=== PATIENT | female | born 1970 | race African-American/Black ===

== ENCOUNTER 2016-07-11 12:59 | Inpatient (IN) | payer OTHER ==
--- NOTE | ~2016-07-11 | DS ---
Unit #: [id number] #: [id number] Patient: NATE CAMPO [id number] [address] [address] [id number] I MR#: [id number] NAME: NATE CAMPO ROOM: 324 Age: 45 Sex: F Admission Date: 07/11/2016 : 1970 Discharge Date: 07/12/2016 Attending Physician: Cassie Mcdowell M.D. Primary Care Physician: Cassie Mcdowell M.D. DISCHARGE SUMMARY FINAL DIAGNOSES 1. Acute on chronic kidney disease. Renal functions have improved. The patient was seen by and the patient will be seen by straightening machine operator as an outpatient. 2. Hypertension, which is resolved. The patient's ROMÁN inhibitors and diuretics have been discontinued at this time. Hydration was started. The patient's blood pressure has improved, but has been told not to take the medication at this time until she follows up with us in a week. 3. Dizziness, resolved. 4. Hyponatremia, resolved. Most likely, it was secondary to elevated sugars. 5. Anemia. The patient does have uterine fibroid bleeding and she needs to follow up with [employer] for possible removal. 6. Proteinuria. The patient does have proteinuria and she should be on ROMÁN inhibitors, but at this time, we have stopped it. 7. Diabetes mellitus. The patient is very noncompliant with her diet. Has been advised to be careful with the diet and check her sugars 2 to 3 times a day. DISCHARGE MEDICATIONS Albuterol inhaler q.4 p.r.n.; Symbicort 160/4.5 two puffs inhaler b.i.d.; Pristiq 50 mg daily; metformin, continue; Seroquel 100 mg at bedtime. Discontinue hydrochlorothiazide, discontinue lisinopril. DIAGNOSTIC STUDIES LABORATORY RESULTS: On discharge, hemoglobin A1c 7.9. Ferritin 29. Sodium 133, potassium 4.8, BUN 29, creatinine 1.8. Total iron is 27. WBC 8.4, hemoglobin 9.0, hematocrit 28.3, and platelet count of 250. PHYSICAL EXAMINATION Please refer to the note today in the progress note. DISCHARGE INSTRUCTIONS 1. Follow up primary care provider, Dr. Mcdowell in 1 week. 2. BMP in 7 days and CBC in 7 days. Dictated by... Margarette Espinosa/jimmie Unit #: [id number] #: [id number] Patient: NATE CAMPO TD: 07/13/2016 02:38 JOB #: [id number] DISCHARGE SUMMARY Page 1 of 1 X Cassie Mcdowell MD X DISCHARGE SUMMARY
--- NOTE | ~2016-07-11 | EKG ---
PATIENT: NATE CAMPO UNIT #: [id number] Ventricular Rate: 110 BPM Atrial Rate: 110 BPM P-R Interval: 162 ms QRS Duration: 90 ms Q-T Interval: 346 ms QTC Calculation(Bezet): 468 ms P [place]: 70 degrees Calculated R [place]: 63 degrees Calculated T [place]: 24 degrees Diagnosis Line: Sinus tachycardia Diagnosis Line: Otherwise normal ECG Diagnosis Line: When compared with ECG of 19-NOV-2012 08:20, Diagnosis Line: Vent. rate has increased BY 40 BPM Diagnosis Line: Confirmed by JA OBRIEN MD ([id number]) on 07/12/2016 Diagnosis Line: 9:15:25 PM INTERPRETING MD: CAMILLE MCNEAL
--- NOTE | ~2016-07-11 | BMI ---
[facility] Nutrition Therapy DATE: 07/12/16 Patient: NATE CAMPO Physician: ALE Address: [address] [facility] Room/Bed: [address] [place] [address], Zip: [place] [address] Admit Date: 07/11/16 Date of : [birth year] Height: 5 7 Weight: 428 194.2 HIGH BMI NOTE: DX: 45 Y.O. FEMALE ADMITTED FOR [facility]: 5'7", WT: 428# (195 KG), BMI: 67.0 DIET: CC+ RENAL INTERVENTION: 1. CC+ RENAL DIET RECOMMENDATIONS: 1. RECOMMEND TO CONTINUE CURRENT DIET ORDER ABOVE TO PROMOTE GRADUAL WEIGHT LOSS TOWARDS HEALTHY BMI (19.0-25.0) OR +/-10%IBW RD WILL F/U PER PROTOCOL Respectfully, HAMIDA JOYNER MS, RD, LD Food and Nutritional Services [facility] cc: client file
--- NOTE | ~2016-07-11 | CO ---
Unit #: [id number] #: [id number] Patient: NATE CAMPO [id number] [address] [place], [place] [address] [id number] I MR#: [id number] NAME: NATE CAMPO ROOM: 324 Age: 45 Sex: F Admission Date: 07/11/2016 : 1970 Attending Physician: Cassie Mcdowell M.D. Primary Care Physician: Cassie Mcdowell M.D. Consultation Date: 07/11/2016 CONSULTATION REPORT REASON FOR CONSULT Uszup-ip-xybiaxa kidney disease. HISTORY OF PRESENT ILLNESS Ms. Campo is a very pleasant, 45-year-old -[place] female with a history of poorly controlled diabetes, who was here at the hospital in the cafeteria eating lunch prior to seeing a occupational medicine physician for clearance for uterine fibroid surgery when she developed dizziness and syncope. A ME Team was called here at the hospital and I defer you to Dr. Mcdowell's admission note for further details. Her blood pressure was very low in the emergency room necessitating fluid resuscitation and patient has recovered her blood pressure and her normal mentation at this time. Kidney function was found to be abnormal on admission labs promoting our consultation. The patient tells me that Dr. Mcdowell recently told her that her kidney function was abnormal in the office and that she needed to start taking better care of her diabetes. She does take her medication but says that she is not compliant with her diet. She does not use any NSAIDs at home. No history of kidney stones. No urinary complaints. PAST MEDICAL HISTORY Past medical history is significant for hypertension, diabetes, asthma, morbid obesity, anemia and arthritis. PAST SURGICAL HISTORY Corneal transplant and cataract surgery and Dr. Mcdowell's notes say that she has had a Lap-Band in the past. HOME MEDICATIONS Her home meds are: 1. Metformin 1000 mg q.h.s. 2. Pristiq 50 mg daily. 3. Seroquel 100 mg q.h.s. 4. Lisinopril 10 mg daily. 5. Hydrochlorothiazide 25 mg daily. 6. Symbicort inhaler and albuterol inhaler. ALLERGIES She has no known drug allergies. FAMILY HISTORY Family history is significant for hypertension and diabetes. There are no blood relatives on dialysis however. Unit #: [id number] #: [id number] Patient: NATE CAMPO SOCIAL HISTORY Patient does not smoke. No alcohol or drug abuse. REVIEW OF SYSTEMS A complete 12-point review of systems was completed with the above findings. In addition she denies any headaches. Her dizziness again has resolved. No nosebleed, sore throat or earache. No chest pain at this time. No palpitations. No cough or hemoptysis. No recent nausea, vomiting or diarrhea. No bright red blood per rectum or melena. No dysuria or hematuria. No swelling. No rashes. No itching. No flank pain. No fevers. No chills. No night sweats or hot flashes. No intolerance to heat or cold. No recent weight changes. Unless otherwise indicated, the review of systems was negative. PHYSICAL EXAMINATION VITAL SIGNS: The patient is afebrile, pulse 80, respiratory rate 20, blood pressure 131/61, most recently blood pressure dropped to 70/50. Is and Os are pending. GENERAL: In general this is a 45-year-old -[place] female lying in bed, just ate dinner, alert and oriented x3 and in no acute distress. HEENT EXAM: Head is atraumatic and normocephalic. Eyes show pale conjunctivae with no scleral icterus. No nasal drainage or nosebleed. Oropharynx is moist. She does have a narrow posterior pharyngeal airway. NECK: Neck is thick with no JVD. HEART: Heart is a regular rate and rhythm with distant S1 and S2. No murmurs or rubs appreciated. LUNGS: Lungs have diminished breath sounds bilaterally with no wheezing. Breathing is nonlabored. ABDOMEN: Abdomen is morbidly obese, soft, nontender. There are bowel sounds present. EXTREMITIES: There is no lower extremity cyanosis or pitting edema. SKIN: Skin is dry without rashes. MUSCULOSKELETAL EXAM: No CVA tenderness to palpation. NEUROLOGICAL EXAM: Cranial nerves appear grossly intact. No gross motor deficits. LYMPHATIC EXAM: There is no neck cervical lymphadenopathy. PSYCHIATRIC EXAM: Mood and affect appear normal. DIAGNOSTIC STUDIES LABORATORY: Chemistry on admission showed a sodium of 134, potassium 3.9, chloride 100, bicarb 21, glucose 313, BUN 29, creatinine 2.7. CBC noteworthy for a hemoglobin of 10.2, troponin negative. Labs from Dr. Mcdowell's office are unavailable. Her creatinine back in 2012 was 0.7. Hemoglobin A1C this admission is pending. Previous urinalysis back in 2011 did show proteinuria. ASSESSMENT AND PLAN 1. Vgznh-se-dozmfql kidney disease, unknown stage. Again patient has been told recently that her kidney function has deteriorated due to her diabetes but I do not have those labs available. Therefore we are not able to place her chronic kidney disease in a give stage. Her acute kidney injury looks to be prerenal in nature from significant hypotension while on an ROMÁN inhibitor and diuretic. These are being held and she is getting hydration with improved blood pressures. I will be sending off urine studies for evaluation. I do not think a kidney ultrasound would be very helpful due to her size as we would not get good imaging with an ultrasound. 2. Hypotension with dizziness. Blood pressure has come up with fluids Unit #: [id number] #: [id number] Patient: NATE CAMPO which we will continue. 3. Hyponatremia. This corrects higher for elevated sugars and will continue saline. 4. Anemia. This is apparently due to some uterine fibroid bleeding and I will check iron stores and replace as needed. 5. Proteinuria. Certainly would like her to be on an ROMÁN inhibitor going forward and may have to switch out her hydrochlorothiazide to a calcium channel power to avoid this prerenal state. 6. Noncompliance with diabetic diet. I would like to thank Dr. Mcdowell for this consult and the opportunity to participate in evaluation and care of Ms. Campo. Dictated by... Christian Franco Jr., MLeo. YVONNE/ochoa TD: 07/11/2016 21:59 JOB #: [id number] CONSULTATION REPORT Page 1 of 1 X Christian Franco MD X CONSULTATION REPORT
--- NOTE | ~2016-07-11 | HP ---
Unit #: [id number] #: [id number] Patient: OLIVIA CAMPO [id number] [facility]. [place], [place] [address] [id number] I MR#: [id number] NAME: OLIVIA CAMPO ROOM: 324 Age: 45 Sex: F Admission Date: 07/11/2016 : 1970 Attending Physician: Cassie Mcdowell M.D. Primary Care Physician: Cassie Mcdowell M.D. HISTORY AND PHYSICAL CHIEF COMPLAINT Dizziness and hypotension. HISTORY OF PRESENTING ILLNESS Ms. Olivia Campo is a 45-year-old morbidly obese female with multiple medical problems including hypertension, asthma, diabetes mellitus type 2, came to hospital to follow up with behavioral consultant Dr. Khoury. Patient's appointment was at noon. She reached the hospital at 11:00 so went to cafeteria to have some food. She was eating food. Right after eating, within five minutes she started feeling very dizzy. She did not have any passing out episode. A ME Team was called. The patient's blood pressure was low and was transferred to emergency room. In emergency room patient was found to be dehydrated, in acute renal failure and also hypotensive. Patient received IV bolus. She is awake, up and sitting in the chair. Patient has been evaluated in room 324. Patient is not complaining of any dizziness anymore. According to patient this happened to her a few days ago. She did not eat anything until late afternoon and then after eating she had dizzy spell. According to her she has been eating and drinking well. Her diet is not very well controlled. She has been drinking a lot of soft drinks and fried food. Even today her diet was martinez Coke, chocolate milk, fried fish sandwich. Patient's diabetes is not very well controlled. According to her she is addicted to sugar and she is having a tough time discontinuing high carb and high sugar diet. Patient has history of anemia and has fibroids. She has been scheduled for surgery but she needs cardiac clearance and pulmonary clearance. Patient has asthma which is not very well controlled. Patient follows up with Dr. Wells and has not gotten pulmonary clearance as yet. Patient does not complaint of any chest pain at this time or at that time. She did have shortness of breath. No complaint of nausea or vomiting. She has not had any fever, chills or rigors in the last few days. PAST MEDICAL HISTORY 1. Hypertension. 2. Diabetes mellitus type 2. 3. Asthma. 4. Morbid obesity. 5. Anemia. 6. Arthritis. FAMILY HISTORY The patient's mother has diabetes and hypertension and also CVA history in mother, maternal grandmother and paternal grandfather. Unit #: [id number] #: [id number] Patient: OLIVIA CAMPO SOCIAL HISTORY Patient has no history of smoking, alcohol or drug abuse. PAST SURGICAL HISTORY Patient has had lap band surgery in the past. REVIEW OF SYMPTOMS As per history of presenting illness. Patient was seen by primary care provider in April 2016. She was told at that time she does have some kidney issue and she needs to control her sugars. Patient also had cerumen impaction in April visit and flushing was done. She does not complain of any headache at this time. No complaint of any visual issues. No ear, nose, throat problem. PHYSICAL EXAMINATION GENERAL APPEARANCE: Morbidly obese female sitting in chair, does not seem to be in any respiratory distress at this time. VITAL SIGNS: Blood pressure at this time is 105/46, respiratory rate 16, pulse is 98, temperature 97.7, oxygen saturation is 99%. Blood pressure was 70/50 earlier and pulse was 115. HEENT: Head is normocephalic. Eye movement was normal. Some conjunctival congestion is present. NECK: Neck is supple. CHEST: Chest has decreased air entry bilaterally. Bilateral wheezing is present. CVS: S1, S2 positive, regular rhythm. ABDOMEN: Morbidly obese, obese abdomen. EXTREMITIES: Edema is present. SKIN: Very dry scaly skin. CUSTOMER SERVICES MANAGER: Awake, alert and oriented x3. No focal neurological deficit. DIAGNOSTIC STUDIES LABORATORY WORKUP: WBC 9.9, hemoglobin 10.2, hematocrit 31.3 and platelet count of 358, sodium 134, potassium 3.9, chloride 100, BUN 29, creatinine 2.7, glucose 161. ASSESSMENT Patient is being admitted to a telemetry unit with: 1. Hypotension. 2. Dizziness. 3. Acute renal failure. 4. Possible clinical dehydration. 5. Diabetes mellitus type 2 uncontrolled. 6. History of hypertension. 7. History of asthma. 8. Morbid obesity. PLAN Plan is admit to telemetry unit. IV fluids normal saline at 150 mL an hour is being started. Constant carb diet is being started. Dr. Saravia will be consulted. Labs will be repeated tomorrow morning. Accu-Chek a.c. and h.s. is being started with insulin sliding scale. Metformin is being discontinued. Lisinopril is being discontinued and hydrochlorothiazide is being discontinued at this time. Again diet counseling done. Patient verbalized understanding. Plan of care has been discussed with patient. Please refer to progress note for further orders. Unit #: [id number] #: [id number] Patient: OLIVIA CAMPO Dictated by Margarette Espinosa/ocoha TD: 07/11/2016 15:24 JOB #: [id number] HISTORY AND PHYSICAL Page 1 of 1 X Cassie Mcdowell MD X HISTORY AND PHYSICAL
[2016-07-11 12:33] LABS: POC - CKMB <1.0 ng/mL (0.0-7.9); POC - TROPONIN <0.05 ng/mL (<=0.05)
[2016-07-11 12:42] LABS: BASOPHIL% 0.4 % (0-2.5); EOSINOPHIL# 0.1 X10e3 (0-0.7); EOSINOPHIL% 1.3 % (0.0-7.0); HEMATOCRIT 31.3 % (35.0-45.0); HEMOGLOBIN 10.2 gm/dL (12.0-16.0); LYMPHOCYTE# 1.5 X10e3 (1.0-3.5); LYMPHOCYTE% 15.1 % (17.0-45.0); MEAN CELL VOLUME 89.3 FL (83-96); MEAN CORPUSCULAR HEMOGLOBIN 28.9 PG (28-34); MEAN CORPUSCULAR HGB CONC 32.4 g/dL (30-36); MEAN PLATELET VOLUME 8.5 FL (6.5-11.5); MONOCYTE# 0.4 X10e3 (0-1.0); MONOCYTE% 3.5 % (3.0-12.0); NEUTROPHIL# 7.9 X10e3 (1.5-7.1); NEUTROPHIL% 79.7 % (40-75); PLATELET COUNT 358 X10e3 (140-420); RED BLOOD COUNT 3.51 X10e (3.90-5.30); RED CELL DISTRIBUTION WIDTH 13.7 % (11.0-15.5); WHITE BLOOD COUNT 9.9 X10e3 (4.0-10.5)
[2016-07-11 12:44] LABS: DIFF IND NO
[~2016-07-11 12:59] MED LIST: ALBUTEROL17 GM INH; CYMBALTA PO; DOXYCYCLINE HY100 M1 PO; GRALISE600 MG PO; HCTZ PO; LASIX20 MG PO; METFORMIN PO; NEURONTIN PO; PREDNISONE PO; PREDNISONE50 MG PO; VOLTAREN75 MG PO; WELLBUTRIN XL PO; ZANTAC150 M1 PO; ZITHROMAX PO
[2016-07-11 13:01] LABS: BUN/CREATININE RATIO 10.74; CALCIUM SERUM 8.9 mg/dL (8.4-10.2); CREATININE SERUM 2.7 mg/dL (0.6-1.4); GLOM FILT RATE Estimated 23.9 mL/min (>60); POTASSIUM 3.9 mmol/L (3.5-5.1)
[2016-07-11] MEDS ORDERED: PRISTIQ50 MG PO (13:57)
[2016-07-11] MEDS ORDERED: METFORMIN HCL1000 M2 PO (13:57)
[2016-07-11] MEDS ORDERED: HYDROCHLOROTHIA25 MG PO (13:58)
[2016-07-11] MEDS ORDERED: LISINOPRIL10 MG PO (13:58)
[2016-07-11] MEDS ORDERED: SEROQUEL PO (13:58)
[2016-07-11] MEDS ORDERED: SYMBICORT INH (13:59)
[2016-07-11] MEDS ORDERED: ALBUTEROL20 ml INH (14:00)
[2016-07-12 06:29] LABS: HEMATOCRIT 28.3 % (35.0-45.0); MEAN CORPUSCULAR HEMOGLOBIN 28.4 PG (28-34); MEAN CORPUSCULAR HGB CONC 31.9 g/dL (30-36); MEAN PLATELET VOLUME 8.9 FL (6.5-11.5); RED BLOOD COUNT 3.18 X10e (3.90-5.30); RED CELL DISTRIBUTION WIDTH 13.7 % (11.0-15.5); WHITE BLOOD COUNT 8.4 X10e3 (4.0-10.5)
[2016-07-12 07:07] LABS: IRON SERUM 27 ug/dL (28-170); TOTAL IRON BINDING CAPACITY 237 ug/dL (269-535); TRANSFERRIN 170 mg/dL (192-382); TRANSFERRIN SATURATION 11 % (20-50)
[2016-07-12 07:22] LABS: BUN/CREATININE RATIO 16.11; CALCIUM SERUM 8.4 mg/dL (8.4-10.2); CREATININE SERUM 1.8 mg/dL (0.6-1.4); POTASSIUM 4.8 mmol/L (3.5-5.1)
[2016-07-12 16:24] LABS: URINE SOURCE CLEAN CATCH
[2016-07-12 16:32] LABS: URINE APPEARANCE CLEAR; URINE BILIRUBIN NEG (NEG); URINE BLOOD NEG (NEG); URINE COLOR YELLOW; URINE GLUCOSE 250 MG/DL (NEG); URINE KETONE NEG (NEG); URINE LEUKOCYTE ESTERASE TRACE (NEG); URINE NITRATE NEG (NEG); URINE PROTEIN NEG (NEG); URINE SPECIFIC GRAVITY 1.013 (1.003-1.035); URINE UROBILINOGEN 0.2 MG/DL (NEG)
[2016-07-12 16:34] LABS: URBCS1 AUWI 0-2 /[HPF] (0-2); URINE BACTERIA AUWI NEG (NEGATIVE); URINE SQUAMOUS EPITHELIAL CELL NONE SEEN /[HPF]; UWBCS1 AUWI 0-2 (0-5)
[2016-07-12 16:43] LABS: CREATININE,RANDOM URINE 87 mg/dL; TOTAL PROTEIN,RANDOM URINE 18 mg/dl (<10)
[2016-08-31] MEDS ORDERED: ZIPRASIDONE HCL40 MG PO (14:55)
[2016-08-31] MEDS ORDERED: FERROUS SULFATE PO (14:56)
[2016-08-31] MEDS ORDERED: FOLIC ACID1 MG PO (14:56)
[2016-08-31] MEDS ORDERED: BREO ELLIPTA 11 EACH INH (14:57)
[2016-08-31] MEDS ORDERED: PRINIVIL10 MG PO (14:57)
[2016-08-31] MEDS ORDERED: PRISTIQ100 MG PO (14:57)
[2016-08-31] MEDS ORDERED: INCRUSE ELLI62.5 MCG INH (14:58)
[2016-09-27] MEDS ORDERED: KEFLEX500 MG PO (07:37)
[2016-11-03] MEDS ORDERED: PRINIVIL20 M1 PO (16:47)
[2016-11-03] MEDS ORDERED: GEODON60 MG (16:49)
[2016-11-03] MEDS ORDERED: BACTRIM DS TAB1 EACH (16:50)
== END 2016-07-12 17:30 | disposition home or self-care (01) | DRG 683 ==
LOC: CED 12:59 → CEDOF 13:25 → C3A PCU 14:47
PROVIDERS: Emergency Medicine; Physician Assistant Medical
PROC: 3E0234Z Introduction of Serum, Toxoid and Vaccine into Muscle, Percutaneous Approach (ICD-10-PCS; principal; 2016-07-12)
DX: N17.9 Acute kidney failure, unspecified (principal); E87.1 Hypo-osmolality and hyponatremia; E11.22 Type 2 diabetes mellitus with diabetic chronic kidney disease; I95.9 Hypotension, unspecified; E11.65 Type 2 diabetes mellitus with hyperglycemia; Z68.45 Body mass index [BMI] 70 or greater, adult; I12.9 Hypertensive chronic kidney disease with stage 1 through stage 4 chronic kidney disease, or unspecified chronic kidney disease; N18.2 Chronic kidney disease, stage 2 (mild); R42 Dizziness and giddiness; D64.9 Anemia, unspecified; R77.9 Abnormality of plasma protein, unspecified; E66.01 Morbid (severe) obesity due to excess calories; E86.0 Dehydration; Z98.84 Bariatric surgery status; J45.909 Unspecified asthma, uncomplicated; Z98.49 Cataract extraction status, unspecified eye; Z79.84 Long term (current) use of oral hypoglycemic drugs; Z83.3 Family history of diabetes mellitus; Z82.49 Family history of ischemic heart disease and other diseases of the circulatory system; D25.9 Leiomyoma of uterus, unspecified; Z23 Encounter for immunization
CPT/HCPCS: 36415; 80048; 81003; 82553; 82570; 82728; 82947; 83036; 83540; 83550; 84156; 84484; 85025; 85027; 90688; 90732; 93005; 94640; 94760; 96360; 99285; G0008; G0009; J1815; J2916

== ENCOUNTER → 2016-09-27 | Day surgery (SDC) | payer OTHER ==
[~2016-09-27] MED LIST changes: +ALBUTEROL20 ml INH; +BACTRIM DS TAB1 EACH; +BREO ELLIPTA 11 EACH INH; +FERROUS SULFATE PO; +FOLIC ACID1 MG PO; +GEODON60 MG; +HYDROCHLOROTHIA25 MG PO; +INCRUSE ELLI62.5 MCG INH; +KEFLEX500 MG PO; +LISINOPRIL10 MG PO; +METFORMIN HCL1000 M2 PO; +PRINIVIL10 MG PO; +PRINIVIL20 M1 PO; +PRISTIQ100 MG PO; +PRISTIQ50 MG PO; +SEROQUEL PO; +SYMBICORT INH; +ZIPRASIDONE HCL40 MG PO
--- NOTE | ~2016-09-27 | EKG ---
PATIENT: NATE CAMPO UNIT #: [id number] Ventricular Rate: 87 BPM Atrial Rate: 87 BPM P-R Interval: 174 ms QRS Duration: 82 ms Q-T Interval: 372 ms QTC Calculation(Bezet): 447 ms P [place]: 67 degrees Calculated R [place]: 47 degrees Calculated T [place]: 53 degrees Diagnosis Line: Normal sinus rhythm Diagnosis Line: Normal ECG Diagnosis Line: When compared with ECG of 11-JUL-2016 12:37, Diagnosis Line: No significant change was found Diagnosis Line: Confirmed by SUE GIL MD ([id number]) on 09/27/2016 Diagnosis Line: 7:48:20 AM INTERPRETING MD: JEFFERY MCNEAL
--- NOTE | ~2016-09-27 | OR ---
Unit #: [id number] #: [id number] Patient: NATE CAMPO [id number] [address] [place], [place] [address] [id number] O MR#: [id number] NAME: NATE CAMPO ROOM: Date of Procedure: 09/27/2016 Admission Date: 09/27/2016 Surgeon: Andre Nichols M.D. : 1970 Attending Physician: Andre Nichols M.D. Primary Care Physician: Cassie Mcdowell M.D. OPERATIVE REPORT PREOPERATIVE DIAGNOSIS Pilonidal abscess. POSTOPERATIVE DIAGNOSIS Pilonidal abscess. PROCEDURE PERFORMED Incision and drainage of pilonidal abscess. ANESTHESIA General anesthesia. ESTIMATED BLOOD LOSS Minimal. IV FLUIDS 400 crystalloid. COMPLICATIONS None. INDICATIONS FOR PROCEDURE The patient is a 46-year-old, morbidly obese lady, who presents with drainage in her pilonidal region. She presents for exploration. DESCRIPTION OF PROCEDURE The patient was taken to the operating theater and placed in a supine position. General anesthesia was induced. She was then placed in prone position and her pilonidal region was prepped and draped. I incised an area measuring approximately 5 cm to develop a pocket in the pilonidal space. There was gross purulence. Also, I made a counterincision on the other side of the midline. This was debrided off all necrotic tissue, irrigated thoroughly with normal saline, and packed with Betadine. The patient tolerated the procedure well and sent to the recovery room in good condition. Dictated by... Margarette Mustafa/wildl Unit #: [id number] #: [id number] Patient: NATE CAMPO TD: 09/27/2016 23:27 JOB #: [id number] OPERATIVE REPORT Page 1 of 1 X Andre Nichols MD X PROCEDURE OPERATIVE NOTE
[2016-09-27 07:59] LABS: BUN/CREATININE RATIO 12.3; CALCIUM SERUM 8.7 mg/dL (8.4-10.2); CREATININE SERUM 1.3 mg/dL (0.6-1.4); GLOM FILT RATE Estimated 57.4 mL/min (>60); POTASSIUM 4.4 mmol/L (3.5-5.1)
== END | disposition home or self-care (01) ==
LOC: CSUR 06:49
PROVIDERS: Surgery
DX: L05.01 Pilonidal cyst with abscess (principal); E66.01 Morbid (severe) obesity due to excess calories; J44.9 Chronic obstructive pulmonary disease, unspecified; I10 Essential (primary) hypertension; E11.9 Type 2 diabetes mellitus without complications; J45.909 Unspecified asthma, uncomplicated; K21.9 Gastro-esophageal reflux disease without esophagitis; M19.90 Unspecified osteoarthritis, unspecified site; D64.9 Anemia, unspecified; G47.30 Sleep apnea, unspecified; F32.9 Major depressive disorder, single episode, unspecified; F41.9 Anxiety disorder, unspecified; Z68.44 Body mass index [BMI] 60.0-69.9, adult; Z87.01 Personal history of pneumonia (recurrent); Z79.84 Long term (current) use of oral hypoglycemic drugs; Z79.51 Long term (current) use of inhaled steroids; Z79.2 Long term (current) use of antibiotics; Z79.899 Other long term (current) drug therapy; Z98.818 Other dental procedure status; Z98.41 Cataract extraction status, right eye; Z98.42 Cataract extraction status, left eye; Z98.84 Bariatric surgery status; Z98.890 Other specified postprocedural states
CPT/HCPCS: 80048; 82947; 84703; 93005; J0330; J2250; J2543; J3010

== ENCOUNTER → 2016-11-13 | Outpatient (CLI) | payer OTHER ==
--- NOTE | ~2016-11-13 | MY29 ---
[facility] A Service of [facility] RADIOLOGY TEXT RESULTS PATIENT: NATE CAMPO LOCATION: [facility] : [birth year] UNIT #: [id number] AGE: [address]: Cassie Mcdowell MD SEX: F ORDER DR: [id number] [facility] [address] [place], [place] [address] [id number] MR#: [id number] Acc #: [id number] NAME: NATE CAMPO : 1970 SEX: F STUDY DATE/TIME: 11/13/2016 11:52 UNIT: [facility] ROOM: STUDY DESCRIPTION: MY TRICE SCREENING W/ CAD BILAT Attending Physician: Cassie Mcdowell M.D. Referring Physician: Cassie Mcdowell M.D. Ordering Physician: Cassie Mcdowell M.D. Primary Care Physician: Cassie Mcdowell M.D. MEDICAL IMAGING REPORT This report is preliminary unless electronic signature is present EXAM Screening mammogram, 11/13 INDICATIONS 46-year-old with no personal or family history of breast cancer. No current complaints. FINDINGS Routine digital screening views of both breasts were obtained. Study is reviewed with an FDA-approved CAD device. Comparison made with 11/05/2015, 03/16/2014. Breast parenchyma shows scattered fibroglandular densities. No new masses or suspicious microcalcifications are seen. Benign lymph node in the lateral right breast is stable. IMPRESSION Benign mammogram. Routine screen in 1 year is recommended. Patients over the age of 40 are entered into a reminder system with target due date for the next mammogram. A result letter will also be sent to the patient. BIRADS: 2 Benign Finding Dictated by... Hugh Tejeda Jr., M.D. THIS IS AN ELECTRONICALLY VERIFIED REPORT Hugh Tejeda Jr., M.D. at 11/14/2016 7:20 AM MARILEEK/keren [facility] A Service of [facility] RADIOLOGY TEXT RESULTS PATIENT: NATE CAMPO LOCATION: [facility] #: [id number] : [birth year] UNIT #: [id number] AGE: [address]: Cassie Mcdowell MD SEX: F ORDER DR: TD: 11/13/2016 22:50 JOB #: [id number] MEDICAL IMAGING REPORT Page 1 of 1 COPY
== END | disposition home or self-care (01) ==
LOC: CWCC 10-24 12:00
DX: Z12.31 Encounter for screening mammogram for malignant neoplasm of breast (principal)
CPT/HCPCS: G0202